=== PATIENT | female | born 1960 | race Caucasian/White ===

== ENCOUNTER → 2017-07-12 | Outpatient (CLI) | payer BC ==
[~2017-07-12] MED LIST: ACIPHEX20 MG PO; ALEVE; ALEVE 220MG220 MG PO; BENADRYL25 M2; BENADRYL25 M2 PO; BENEFIBER; CALCIUM CITRAT200 MG; CARISOPRODOL350 MG PO; CHLOR TRIMETON 44 MG; CLARITIN 1010 MG/TAB; CLARITIN REDITA10 MG PO; CROLOM 10 ML10 ML OP; CYANOCOBAL1000 MCG/1; DECONAMINE SR 81 CER PO; ESTROVEN PO; FISH OIL SUPER1 SGL; FLEXERIL 1010 MG/TAB PO; FRESHKOTE OP; HCTZ 25MG TAB25 MG; HCTZ 25MG TAB25 MG PO; IMITREX25 MG PO; IMITREX50 MG PO; INDERAL80 MG PO; LEVAQUIN 5500 MG/TA1 PO; LEVOTHYROXIN0.075 MG PO; LIDODERM PATCH; LISINOPRIL10 MG PO; ORTHO TRI CYCLEN; PHENERGAN 25 TA25 MG PO; PROBIOTIC FORMU1 CAP PO; PROTONIX 40MG T40 MG PO; RESTASIS0.05%; RESTASIS0.05% OU; RHINOCORT0.032 MG/1; RHINOCORT0.032 MG/1 NS; SINGULAIR 110 MG/TAB PO; STOOL SOFTENER100 MG PO; SUDAFED30 MG PO; SYNTHROID0.075 MG/T; SYNTHROID0.075 MG/T PO; TOPAMAX 25MG25 MG PO; ULTRAM 50MG TAB50 MG PO; VALIUM 5MG T5 MG/TAB PO; VITAMIN D5000 IU PO; ZANTAC 150150 MG PO; ZESTRIL40 MG PO; [UNRECOGNIZED DRUG - OTHER]; [UNRECOGNIZED DRUG - REMARK]; b12
== END ==
LOC: MC.RAD 11:40
DX: Z12.31 Encounter for screening mammogram for malignant neoplasm of breast (principal)

== ENCOUNTER → 2018-09-27 | Outpatient (CLI) | payer BC | LOC: MC.RAD 08-20 17:00 | DX: Z12.31 Encounter for screening mammogram for malignant neoplasm of breast (principal) ==

== ENCOUNTER 2019-06-06 08:37 | Day surgery (SDC) | payer BC ==
[~2019-06-06] VITALS: Ht 166.4 cm; Wt 91.6 kg
[2019-06-06 08:40] VITALS: BP 129/75; PULSE 66
--- NOTE | 2019-06-06 08:40 | NUR ---
Pt returned from Endo procedure via cart. Pt drowsy but awake and oriented. Denies nausea or pain. Pt ambulated to chair with Endo RN and is sitting comfortably. Call light within reach, VSS and WNL on RA. Family at bedside
[2019-06-06 08:50] VITALS: BP 141/98; PULSE 84; TEMP 97.8
[2019-06-06] MEDS ORDERED: COZAAR 25MG25 MG/TAB PO (08:54)
[2019-06-06] MEDS ORDERED: DITROPAN 5MG TAB5 MG PO (08:57)
[2019-06-06] MEDS ORDERED: RHINOCORT0.032 MG/1 NS (08:58)
[2019-06-06] MEDS ORDERED: ESTRACE 1MG1 MG/TAB PO (08:58)
[2019-06-06] MEDS ORDERED: ALIGN PO (08:59)
[2019-06-06] MEDS ORDERED: VITAMIN D31000 IU PO (09:04)
[2019-06-06] MEDS ORDERED: VITAMINC250CH PO (09:04)
[2019-06-06] MEDS ORDERED: VIACTIV PO (09:05)
[2019-06-06 10:40] VITALS: BP 133/98; PULSE 81; TEMP 98.3
--- NOTE | 2019-06-06 10:40 | NUR ---
Pt arrived to room from procedure with Wayne RN via cart. Received report from [facility]. VSS and WNL. Pt is drowsy but will arouse to name. She states that her mouth is very dry and uncomfortable. Water and coffee brought to pt per her request. , Efrain, at bedside and call light within reach.
[2019-06-06 10:55] VITALS: BP 129/82; PULSE 76
--- NOTE | 2019-06-06 10:55 | NUR ---
Pt slowly "perking up", and she says she is feeling more like herself. VSS and WNLJason Dougherty brought to pt per her request, and she successfully drank coffee and water with no c/o nausea Dr. at [facility] reviewing procedure with pt and . No further questions or concerns from them.
[2019-06-06 11:10] VITALS: BP 131/94; PULSE 74
--- NOTE | 2019-06-06 11:10 | NUR ---
Pt states that she is ready to go home, and she meets criteria for discharge. Reviewed discharge information with pt and , and they have no further concerns/questions at this time. Pt successfully ate muffin with no c/o n/v. VSS and WNL
== END 2019-06-06 11:30 ==
LOC: SDCO 08:37
DX: Z12.11 Encounter for screening for malignant neoplasm of colon (principal); K57.30 Diverticulosis of large intestine without perforation or abscess without bleeding; K58.1 Irritable bowel syndrome with constipation; D50.9 Iron deficiency anemia, unspecified; I10 Essential (primary) hypertension; E78.00 Pure hypercholesterolemia, unspecified; Z83.71 Family history of colonic polyps; Z88.5 Allergy status to narcotic agent; Z88.0 Allergy status to penicillin; Z88.1 Allergy status to other antibiotic agents; Z88.2 Allergy status to sulfonamides
CPT/HCPCS: J2250; J3010; J7030

== ENCOUNTER 2023-11-21 09:24 | Outpatient (RCR) | payer BC ==
[~2023-11-21 09:24] MED LIST changes: +ALIGN PO; +COZAAR 25MG25 MG/TAB PO; +DITROPAN 5MG TAB5 MG PO; +ESTRACE 1MG1 MG/TAB PO; +VIACTIV PO; +VITAMIN D31000 IU PO; +VITAMINC250CH PO
[2023-11-23] MEDS ORDERED: PEPCID40 MG PO (07:35)
[2023-11-23] MEDS ORDERED: LIPITOR 40MG TA40 MG PO (07:35)
[2023-11-23] MEDS ORDERED: GLUCOPHAGE XR500 M1 PO (07:36)
[2023-11-23] MEDS ORDERED: PERIACTIN 4MG TA4 MG PO (07:37)
== END 2023-11-27 | disposition home or self-care (01) ==
LOC: WSST
DX: R49.0 Dysphonia (principal)

== ENCOUNTER → 2023-11-23 | Day surgery (SDC) | payer BC ==
[~2023-11-23] VITALS: Ht 165.1 cm; Wt 90.1 kg
[~2023-11-23] MED LIST changes: +GLUCOPHAGE XR500 M1 PO; +Glycopyrrolate 0.2 MG/ML 1 ML VIAL ONE; +LIPITOR 40MG TA40 MG PO; +LR 1,000 ML IV SCH; +Lidocaine PF 2% (20 MG/ML) 5 ML VIAL ONE; +Ondansetron 4 MG/2 ML VIAL IV PRN; +PEPCID40 MG PO; +PERIACTIN 4MG TA4 MG PO
[2023-11-23 07:02] VITALS: BP 143/99; PULSE 82; TEMP 97.2
[2023-11-23 08:30] VITALS: BP 140/91; PULSE 86; TEMP 98.5
[2023-11-23 08:45] VITALS: BP 140/95; PULSE 71
[2023-11-23 08:50] VITALS: BP 130/88; PULSE 70
--- NOTE | 2023-11-23 09:12 | NUR ---
0830 Pt ambulated with standby assist from cart to chair. Pt complaining of nausea - emisis bag provided 0835 pt tolerating clear liquids without vomiting [id number] MD Luly in room 0850 pt verbally understands discharge instructions 0855 pt escorted to vehicle via wheelchair - no nausea present
== END ==
LOC: SDCO 06:28
DX: K21.00 Gastro-esophageal reflux disease with esophagitis, without bleeding (principal); K62.1 Rectal polyp; J02.9 Acute pharyngitis, unspecified; R19.4 Change in bowel habit; R93.5 Abnormal findings on diagnostic imaging of other abdominal regions, including retroperitoneum; K57.30 Diverticulosis of large intestine without perforation or abscess without bleeding; R93.3 Abnormal findings on diagnostic imaging of other parts of digestive tract
CPT/HCPCS: J2704; J7120

== ENCOUNTER 2023-12-27 14:45 | Outpatient (RCR) | payer BC ==
[~2023-12-27 14:45] MED LIST changes: -Glycopyrrolate 0.2 MG/ML 1 ML VIAL ONE; -LR 1,000 ML IV SCH; -Lidocaine PF 2% (20 MG/ML) 5 ML VIAL ONE; -Ondansetron 4 MG/2 ML VIAL IV PRN
== END 2023-12-28 | disposition home or self-care (01) ==
LOC: WSST
DX: R49.0 Dysphonia (principal)